=== PATIENT | female | born 1990 | race Two or more races ===

== ENCOUNTER 2023-08-03 11:12 | Emergency (ER) | payer OTHER, SELFPAY ==
--- NOTE | ~2023-08-03 | CT_ITS ---
EXAMINATION: CT HEAD WITHOUT CONTRAST CLINICAL INFORMATION: Headache COMPARISON: None available. TECHNIQUE: Contiguous axial imaging was performed from the skull base to vertex without intravenous administration of contrast. This CT examination was performed using dose optimization techniques as appropriate, variously including the following: *Automated exposure control *Adjustment of mA and/or kV according to patient size (this includes techniques or standardized protocols for targeted exams where dose is matched to indication/reason for exam; i.e. extremities or head) *Use of iterative reconstruction technique DLP: 633.00 mGy-cm FINDINGS: There is no intracranial hemorrhage or evidence of acute territorial infarction. There is no mass effect or midline shift. No extra-axial fluid collection. Ventricles are normal. Almendarez-white matter differentiation is preserved. The frontal sinuses are hypoplastic. The visualized paranasal sinuses and mastoid air cells are well aerated and clear. No osseous abnormality. CT/CT head/brain wo IV con IMPRESSION: No acute intracranial pathology.
[2023-08-03 11:17] VITALS: BP 136/76; PULSE 93; RESP 18; TEMP 36.9; O2SAT 98; BMI 26.8
--- NOTE | 2023-08-03 11:27 | ED_ITS ---
HPI - General Adult General Chief complaint: Headache Stated complaint: Headache Body Pain Time Seen by Provider: 08/03/23 13:11 Source: patient Mode of arrival: ambulatory Limitations: no limitations History of Present Illness HPI narrative: 33 yold female with pmh of headaches presents to the Ed for headache since 07/25 and bilateral arm pain. patient state she has been under alot of stress. Patient states no neck stiffness, slurred speech, nausea, vomiting, paralysis, loss of vision, chest pain, dizziness, facial droop, photophobia, or recent trauma. Related Data Previous Rx's Medication Instructions Recorded naproxen 500 mg tablet 500 mg PO BID PRN pain 7 days #14 08/03/23 tabs Allergies Allergy/AdvReac Type Severity Reaction Status Date / Time No Known Allergies Allergy Verified 08/03/23 11:25 Review of Systems 2 Review of Systems: headache. bilateral upper arm pain. stressed. Yes all other systems are reviewed and are negative [facility] Social History Social History Advance Directives: No Physical Exam ED Vital Signs: Vital Signs - 24 hr 08/03/23 11:17 Temperature 98.4 F Pulse Rate 93 Respiratory Rate 18 Blood Pressure 136/76 Pulse Oximetry 98 Oxygen Delivery Method Room Air BMI result Body Mass Index 26.8 Const General: cooperative, healthy appearing, comfortable, no acute distress, well developed, alert, awake and Physically active Orientation/consciousness: oriented to person, oriented to place, oriented to time and patient oriented x3 HENMT Head: Yes normal to inspection, Yes No palpable skull fracture present, Yes normocephalic and Yes atraumatic Ears: hearing grossly normal bilaterally, external ears normal, TM's normal bilaterally, TM normal on the right, TM normal on the left, EAC's normal and mastoids normal Throat: Yes posterior oropharynx normal, Yes tonsils normal and Yes uvula midline Eyes General: appearance normal, both eyes and all related structures Visual Burrell: normal visual burrell by confrontation Alignment and Position: alignment normal Periorbital: periorbital findings normal Eyelids: Yes eyelids normal Conjunctivae: conjunctivae normal Sclerae: sclerae normal Corneas: corneas normal Pupils: Equal, round and reactive pupils present EOM: EOMs intact bilaterally Direct Ophthalmoscopy: normal light reflex Neck Neck: Yes normal visual inspection, Yes full ROM, Yes no lymphadenopathy, Yes no meningeal signs, Yes trachea midline, Yes supple, No anterior neck swelling and No tender Chest Chest palpation & inspection: normal inspection of the chest and normal palpation of entire chest wall Resp Effort & Inspection: normal respiratory effort and able to speak in complete sentences Auscultation: clear to auscultation bilaterally Cardio Jugular venous distension: no JVD Heart sounds: S1 normal heart sound present and S2 normal heart sound present GI Inspection: Yes normal to inspection Palpation (GI): Soft to palpation, not firm, nontender, no guarding and not rigid General: Yes no CVA tenderness Back/Spine/Pelvis Back: no CVA tenderness and back tenderness Skin General skin exam: no rashes or lesions noted, elasticity normal and turgor normal Neuro General: oriented to person, oriented to place, oriented to time, patient oriented x3, gait normal, tone normal, moves all extremities, Normal light touch and pain sensation, no meningeal signs, no focal motor deficits and CN's II-XI intact bilaterally Cranial nerves: Yes Equal, round and reactive pupils present Extrem Other: bilateral upper and lower extremities negative for swelling, pitting edema, calf tenderness, erythema, ecchymosis, deformities, or swelling. ALl extremities motor, neuro, and vascular exam is intact. General: Yes normal to inspection, Yes full ROM and Yes capillary refill normal Psych Appearance: grossly normal, well kempt and not disheveled Course Course Course Narrative: RME: 33 yold female with no pmh presents to the ED for headache since 07/25 with bilateral pain. patient denies any neuro deficits. history of headaches. for nausea, vomitting presents. negative for any chest pain or shortness of breath. negative for any neuro deficits. labs head CT scan ordered Medical Decision Making Medical Decision Making MDM Narrative: 33 yold female presents to the ED for headache since 07/25 and bilateral arm pain. patient has not tried taken any pain meds for headache since 07/25. patient states no trauma, fever, chills, or neuro deficits. 1:18pm: Labs, head CT scan SARs negative. Neuro exam intact. NIH score 0. Negative for signs for stroke. Negative for signs of carotid dissection. Negative for signs of posterior cerebellar stroke. Not suspecting glaucoma. Not suspecting temporal arthritis. Negative for signs of brain bleed. Patient states under lot of stress causing her headache. Not suspect a subarachnoid bleed. Patient will be prescribed pain medication informed to follow-up with primary care provider. Patient did not give urine sample. denies Urinary symptoms. Informed to follow up with PCP. patient given copies of labs and imaging. patientexplained worrisome sings. Differential Diagnosis Differential Diagnoses: The differential diagnosis associated with the presentation includes (tension headache, migraines, ) Lab Data MDM Lab Attestation statement: I reviewed the patient's lab results. 08/03/23 11:57 08/03/23 11:57 Labs: Lab Results 08/03/23 Range/Units 11:57 WBC 9.0 (4.8-10.8) X10*3/uL RBC 4.31 (4.20-5.50) X10*6/uL Hgb 12.0 (12.0-16.0) g/dl Hct 37.3 (37.0-47.0) % MCV 86.5 (80.0-98.0) fL MCH 27.8 (27.0-33.0) pg MCHC 32.2 (31.0-35.0) g/dl RDW 14.2 (11.0-16.0) % Plt Count 233 (160-400) X10*3/uL MPV 12.7 H (9.4-12.3) fL Immature Gran % (Auto) Cancelled Neut % (Auto) Cancelled Lymph % (Auto) Cancelled [place] % (Auto) Cancelled Eos % (Auto) Cancelled Baso % (Auto) Cancelled Lymph # (Auto) Cancelled [place] # (Auto) Cancelled Eos # (Auto) Cancelled Baso # (Auto) Cancelled Abs Immat Gran (auto) Cancelled Absolute Neuts (auto) Cancelled Absolute Nucleated RBC 0.000 (0.0-0.012) X10*3/uL Nucleated RBC % (auto) 0.0 (0.0-0.2) /100WBC Neutrophils % (Manual) 58 (45-73) % Band Neutrophils % 1 L (3-5) % Lymphocytes % (Manual) 36 (20-40) % Monocytes % (Manual) 4 (2-11) % Eosinophils % (Manual) 1 (0-4) % Abs Neuts (Manual) 5.3 (2.0-8.3) X10*3/uL Lymphocytes # (Manual) 3.2 (1.2-4.9) X10*3/uL Monocytes # (Manual) 0.4 (0.1-1.2) X10*3/uL Eosinophils # (Manual) 0.1 (0.0-0.4) X10*3/uL Toxic Vacuolation PRESENT Platelet Estimate NORMAL (NORMAL) Large Platelets PRESENT Plt Morphology Comment NOTED RBC Morphology NORMAL Sodium 139 (135-145) mmol/L Potassium 3.5 (3.3-5.1) mmol/L Chloride 108 (96-108) mmol/L Carbon Dioxide 25 (22-29) mmol/L Anion Gap 10 L (12-20) BUN 8 L (9-16) mg/dL Creatinine 0.78 (0.5-1.4) mg/dL Estim Creat Clear Calc 104.6 Estimated GFR > 60 Random Glucose 95 (60-115) mg/dL Calcium 9.3 (8.4-10.2) mg/dL Total Bilirubin 0.6 (0.0-1.0) mg/dL AST 15 (5-31) U/L ALT 10 (0-31) U/L Alkaline Phosphatase 72 (39-117) U/L Troponin I High Sens < 2.7 (<3.5-17.0) ng/L Total Protein 7.8 (6.5-8.0) g/dL Albumin 4.5 (3.5-5.0) g/dL Beta HCG, Quant < 2 mIU/mL Influenza Type A (PCR) NEGATIVE (Negative) Influenza Type B (PCR) NEGATIVE (Negative) RSV RNA Qual (PCR) NEGATIVE (Negative) SARS-CoV-2 RNA (RT-PCR) NEGATIVE (Negative) Independent Interpretation I performed an independent interpretation of an: EKG (Sinus tachy. negative stemi) and CT Scan External Record Review External record reviewed: Other (Prior visits) Prescription Management I considered prescription management with: Pain Medication Discharge Plan Discharge Clinical Impression: Headache Patient Disposition: Home, Self-Care Instructions: General Headache (ED) Additional Instructions: Laboratwa ou yo tounen n?mal. Scan CT t?t ou a tounen negatif mack siy konjesyon serebral, mas nan s?vo, oswa senyen nan s?vo. Rek?mande swivi ak founis? swen prensipal ou. Retounen nan ED la imedyatman mack nenp?t ki pale mal, fasyal tonbe, paralizi nan ekstremite, p?t vizyon, k? plen, vomisman, doul? nan pwatrin, souf kout, lafy?v, frison, bolivar r?d, anfle nan ekstremite, oswa nenp?t l?t sent?m ki kons?ne. Retounen nan ED la james mack disuri, ematuri, doul? nan vant, nuasea, vomisman, lafy?v, oswa nata. Your labs came back normal. Your head CT scan came back negative for signs of stroke, brain mass, or brain bleed. Recommend follow-up with your primary care provider. Return to the ED immediately for any slurred speech, facial droop, paralysis of extremities, loss of vision, nausea, vomiting, chest pain, shortness of breath, fever, chills, neck stiffness, swelling of extremities, or any other concerning symptoms. Return to the ED also for dysuria, hematuria, abdominal pain, nuasea, vomitting, fever, or chill. Prescriptions: New naproxen 500 mg tablet 500 mg PO BID PRN (Reason: pain) 7 Days Qty: 14 0RF Interventions: ED Discharge Assessment Last Done: 08/03/23 13:38 Discharge Date/Time: 08/03/23 13:39 Print Language: Czech
--- NOTE | 2023-08-03 11:47 | ECG_ITS ---
Test Reason : HEADACHE Blood Pressure : / mmHG Vent. Rate : 110 BPM Atrial Rate : 110 BPM P-R Int : 124 ms QRS Dur : 082 ms QT Int : 342 ms P-R-T Axes : 065 042 034 degrees QTc Int : 462 ms Sinus tachycardia Otherwise normal ECG No previous ECGs available Referred By: Stoney Medel Electronically Signed By:JOEL MORIN MD
[2023-08-03 12:04] LABS: Hematocrit 37.3 % (37.0-47.0); Mean Corpuscular HGB Conc 32.2 g/dl (31.0-35.0); Mean Corpuscular Hemoglobin 27.8 pg (27.0-33.0); Mean Corpuscular Volume 86.5 fL (80.0-98.0); Mean Platelet Volume 12.7 fL (9.4-12.3); Platelet Count 233 X10*3/uL (160-400); Red Blood Count 4.31 X10*6/uL (4.20-5.50); Red Cell Distribution Width 14.2 % (11.0-16.0)
[2023-08-03 12:09] LABS: WBC ABN SCTR FOR CBC 1
[2023-08-03 12:28] LABS: Alanine Aminotransferase 10 U/L (0-31); Albumin Level 4.5 g/dL (3.5-5.0); Alkaline Phosphatase 72 U/L (39-117); Anion Gap 10 (12-20); Aspartate Amino Transferase 15 U/L (5-31); Bilirubin Total 0.6 mg/dL (0.0-1.0); Blood Urea Nitrogen 8 mg/dL (9-16); Calcium 9.3 mg/dL (8.4-10.2); Carbon Dioxide 25 mmol/L (22-29); Chloride 108 mmol/L (96-108); Creatinine Clr Calc Pharmacy 104.6; Estimated Glomerular Filt Rate > 60; Glucose Random 95 mg/dL (60-115); HCG Quantitative < 2 mIU/mL; Potassium 3.5 mmol/L (3.3-5.1); Sodium 139 mmol/L (135-145); Total Protein 7.8 g/dL (6.5-8.0); Troponin-I High Sensitivity < 2.7 ng/L (<3.5-17.0)
[2023-08-03 12:29] LABS: Eosinophils Percent Manual 1 % (0-4); Lymphocytes Percent Manual 36 % (20-40); Monocytes Percent Manual 4 % (2-11)
[2023-08-03 12:31] LABS: Band Neutrophils Percent 1 % (3-5); Large Platelet PRESENT; Neutrophils Percent Manual 58 % (45-73); Platelet Estimate NORMAL (NORMAL); Platelet Morphology Comment NOTED; RBC Morphology NORMAL; Toxic Vacuolation PRESENT
[2023-08-03 12:32] LABS: Eosinophils Absolute Manual 0.1 X10*3/uL (0.0-0.4); Lymphocytes Absolute Manual 3.2 X10*3/uL (1.2-4.9); Monocytes Absolute Manual 0.4 X10*3/uL (0.1-1.2); Neutrophils Absolute Manual 5.3 X10*3/uL (2.0-8.3)
[2023-08-03 12:57] LABS: Influenza A PCR NEGATIVE (Negative); Influenza B PCR NEGATIVE (Negative); Resp Syncy Virus RNA Qual PCR NEGATIVE (Negative); SARS COV2 PCR INHOUSE NEGATIVE (Negative)
== END 2023-08-03 13:39 | disposition home or self-care (01) ==
PROVIDERS: Physician Assistant; Emergency Provider Emergency Medicine Emergency Medical Services
DX: R51.9 Headache, unspecified (principal); M79.10 Myalgia, unspecified site; R00.0 Tachycardia, unspecified; Z79.899 Other long term (current) drug therapy; Z20.822 Contact with and (suspected) exposure to COVID-19; Z20.828 Contact with and (suspected) exposure to other viral communicable diseases
CPT/HCPCS: 0241U; 36415; 70450; 80053; 84484; 84702; 85007; 85027; 93005; 99283; 99284

== ENCOUNTER → 2023-08-03 11:47 | Outpatient (BNV) | payer OTHER, SELFPAY | PROVIDERS: Emergency Provider Emergency Medicine Emergency Medical Services; Visit Provider Internal Medicine Cardiovascular Disease | DX: R00.0 Tachycardia, unspecified (principal) | CPT/HCPCS: 93010 ==

== ENCOUNTER 2024-01-15 13:56 | Emergency (ER) | payer MEDICAID, SELFPAY ==
[2024-01-15 14:04] VITALS: BP 113/60; PULSE 90; RESP 19; TEMP 36.6; O2SAT 99; BMI 25.3
--- NOTE | 2024-01-15 14:04 | ED.GENADULT ---
HPI - General Adult General Chief complaint: General Medical Stated complaint: neck pain Time Seen by Provider: 01/15/24 19:01 Related Data Previous Rx's ?Medication ?Instructions ?Recorded naproxen 500 mg tablet 500 mg PO BID PRN pain 7 days #14 08/03/23 tabs Allergies Allergy/AdvReac Type Severity Reaction Status Date / Time No Known Allergies Allergy Verified 01/15/24 14:08 [facility] Social History Social History Advance Directives: No Advance Directives Information Provided: No Physical Exam ED Vital Signs: BMI result Body Mass Index 25.3 Course Course Course Narrative: This is a rapid medical exam performed by Doreen Pettit NP: Additional HPI, ROS, PE not included below will be deferred to primary provider. Patient is a 33-year-old [place] Creole speaking female presenting to the ED with complaint of headache, neck pain, and dyspnea on exertion for the past 3 days. Did not take anything for her symptoms. PE: vital signs stable, no meningismus, lungs CTA Plan: viral serology, labs Medical Decision Making Lab Data 01/15/24 15:12 01/15/24 15:12 Labs: Lab Results 01/15/24 Range/Units 15:12 WBC 8.6 (4.8-10.8) X10*3/uL RBC 3.99 L (4.20-5.50) X10*6/uL Hgb 10.5 L (12.0-16.0) g/dl Hct 31.8 L (37.0-47.0) % MCV 79.7 L (80.0-98.0) fL MCH 26.3 L (27.0-33.0) pg MCHC 33.0 (31.0-35.0) g/dl RDW 16.0 (11.0-16.0) % Plt Count 202 (160-400) X10*3/uL MPV 12.8 H (9.4-12.3) fL Immature Gran % (Auto) Cancelled Neut % (Auto) Cancelled Lymph % (Auto) Cancelled [place] % (Auto) Cancelled Eos % (Auto) Cancelled Baso % (Auto) Cancelled Lymph # (Auto) Cancelled [place] # (Auto) Cancelled Eos # (Auto) Cancelled Baso # (Auto) Cancelled Abs Immat Gran (auto) Cancelled Absolute Neuts (auto) Cancelled Absolute Nucleated RBC 0.000 (0.0-0.012) X10*3/uL Nucleated RBC % (auto) 0.0 (0.0-0.2) /100WBC Neutrophils % (Manual) 54 (45-73) % Band Neutrophils % 0 L (3-5) % Lymphocytes % (Manual) 32 (20-40) % Monocytes % (Manual) 12 H (2-11) % Eosinophils % (Manual) 1 (0-4) % Basophils % (Manual) 1 (0-2) % Abs Neuts (Manual) 4.6 (2.0-8.3) X10*3/uL Lymphocytes # (Manual) 2.8 (1.2-4.9) X10*3/uL Monocytes # (Manual) 1.0 (0.1-1.2) X10*3/uL Eosinophils # (Manual) 0.1 (0.0-0.4) X10*3/uL Basophils # (Manual) 0.1 (0.0-0.2) X10*3/uL Platelet Estimate NORMAL (NORMAL) Plt Morphology Comment NORMAL RBC Morphology NORMAL Sodium 142 (135-145) mmol/L Potassium 4.0 (3.3-5.1) mmol/L Chloride 110 H (96-108) mmol/L Carbon Dioxide 26 (22-29) mmol/L Anion Gap 10 L (12-20) BUN 10 (9-16) mg/dL Creatinine 0.80 (0.5-1.4) mg/dL Estim Creat Clear Calc 95.4 Estimated GFR > 60 Random Glucose 91 (60-115) mg/dL Calcium 9.8 (8.4-10.2) mg/dL Total Bilirubin 0.4 (0.0-1.0) mg/dL AST 15 (5-31) U/L ALT 8 (0-31) U/L Alkaline Phosphatase 59 (39-117) U/L Total Protein 7.2 (6.5-8.0) g/dL Albumin 4.3 (3.5-5.0) g/dL Beta HCG, Quant < 2 mIU/mL Influenza Type A (PCR) NEGATIVE (Negative) Influenza Type B (PCR) NEGATIVE (Negative) RSV RNA Qual (PCR) NEGATIVE (Negative) SARS-CoV-2 RNA (RT-PCR) NEGATIVE (Negative) Discharge Plan Discharge Clinical Impression: Diagnosis unknown Patient Disposition: Left W/O Completing Treatment Prescriptions: No Action naproxen 500 mg tablet 500 mg PO BID PRN (Reason: pain) 7 Days Qty: 14 0RF Interventions: PENNY Worksheet Last Done: 01/15/24 20:01 Discharge Date/Time: 01/15/24 20:01
[2024-01-15 15:29] LABS: Hematocrit 31.8 % (37.0-47.0); Hemoglobin 10.5 g/dl (12.0-16.0); Mean Corpuscular Hemoglobin 26.3 pg (27.0-33.0); Mean Corpuscular Volume 79.7 fL (80.0-98.0); Mean Platelet Volume 12.8 fL (9.4-12.3); Platelet Count 202 X10*3/uL (160-400); Red Blood Count 3.99 X10*6/uL (4.20-5.50)
[2024-01-15 15:37] LABS: WBC ABN SCTR FOR CBC 1
[2024-01-15 15:53] LABS: Influenza A PCR NEGATIVE (Negative); Influenza B PCR NEGATIVE (Negative); Resp Syncy Virus RNA Qual PCR NEGATIVE (Negative); SARS COV2 PCR INHOUSE NEGATIVE (Negative)
[2024-01-15 15:55] LABS: Alanine Aminotransferase 8 U/L (0-31); Albumin Level 4.3 g/dL (3.5-5.0); Alkaline Phosphatase 59 U/L (39-117); Anion Gap 10 (12-20); Aspartate Amino Transferase 15 U/L (5-31); Bilirubin Total 0.4 mg/dL (0.0-1.0); Blood Urea Nitrogen 10 mg/dL (9-16); Calcium 9.8 mg/dL (8.4-10.2); Carbon Dioxide 26 mmol/L (22-29); Chloride 110 mmol/L (96-108); Creatinine Clr Calc Pharmacy 95.4; Estimated Glomerular Filt Rate > 60; Glucose Random 91 mg/dL (60-115); Sodium 142 mmol/L (135-145); Total Protein 7.2 g/dL (6.5-8.0)
[2024-01-15 16:05] LABS: HCG Quantitative < 2 mIU/mL
[2024-01-15 16:37] LABS: Band Neutrophils Percent 0 % (3-5); Basophils Percent Manual 1 % (0-2); Eosinophils Percent Manual 1 % (0-4); Lymphocytes Percent Manual 32 % (20-40); Monocytes Percent Manual 12 % (2-11); Neutrophils Percent Manual 54 % (45-73)
[2024-01-15 16:39] LABS: Basophils Abs Manual 0.1 X10*3/uL (0.0-0.2); Eosinophils Absolute Manual 0.1 X10*3/uL (0.0-0.4); Lymphocytes Absolute Manual 2.8 X10*3/uL (1.2-4.9); Neutrophils Absolute Manual 4.6 X10*3/uL (2.0-8.3); Platelet Estimate NORMAL (NORMAL); Platelet Morphology Comment NORMAL; RBC Morphology NORMAL; White Blood Count 8.6 X10*3/uL (4.8-10.8)
--- NOTE | 2024-01-15 19:34 | PC.NURSE ---
Pt leaving at this time states her baby is hungry and she needs to leave.
== END 2024-01-15 20:01 | disposition left against medical advice (07) ==
PROVIDERS: Registered Nurse Emergency; Emergency Provider Emergency Medicine
DX: M54.2 Cervicalgia (principal); Z03.818 Encounter for observation for suspected exposure to other biological agents ruled out
CPT/HCPCS: 0241U; 80053; 84702; 85007; 85027; 99281; 99283